=== PATIENT | female | born 1960 | race Caucasian/White ===

== ENCOUNTER 2023-04-03 12:01 | Day surgery (SDC) | payer OTHER ==
[~2023-04-03] VITALS: Ht 154.9 cm; Wt 51.7 kg
[2023-04-03] MEDS ORDERED: MIDAZOLAM 5 MG/5 ML VIAL ONE (15:37)
[2023-04-03] MEDS ORDERED: fentaNYL citrate 0.05 MG/ML VIAL ONE (15:37)
[2023-04-03] MEDS ORDERED: LIDOCAINE 2% 100 MG/5 ML UJET TP ONE (15:38)
== END 2023-04-03 16:45 | disposition home or self-care (01) ==
LOC: MDS 12:01 → MMU 13:08 → MDS 16:45
PROVIDERS: ATTEND Internal Medicine Gastroenterology
DX: R11.0 Nausea (principal); R10.9 Unspecified abdominal pain; E78.5 Hyperlipidemia, unspecified; Z79.899 Other long term (current) drug therapy
CPT/HCPCS: 43235; J2250; J3010